=== PATIENT | female | born 1960 | race Caucasian/White ===

== ENCOUNTER 2025-09-11 11:06 | Outpatient (AMB) | payer MEDICARE, SELFPAY ==
[2025-09-11 11:20] VITALS: BMI 24.2
--- NOTE | 2025-09-11 11:20 | A.PHYSOV ---
Vital Signs 09/11/25 11:20 Height 5 ft 6 in Weight 150 lb BMI 24.2 Intake Visit Reasons: eval for back injection Intake Note: Patient is a 65 year old female here today for low back pain. Patient is requesting another injection. 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 She has a history of left hip replacement surgery and has had bursitis on her right side for approximately 20 years. The patient also has a retear of her right meniscus. She distinguishes between the pain from her torn meniscus, which is on the outer corner of her right knee, and the pain from her back, which radiates down the inner aspect of her knee to her two big toes. Her administrative program specialist, Dr. Rebolledo, believes most of her pain is radicular. Previous lumbar injections in December 2023 provided minimal relief. Recently, she has been taking a collagen supplement for about three weeks and has noticed a significant decrease in her pain and improvement in her mobility over the last week. She also had a severe episode of kidney stones around , which caused significant pain, vomiting, and a 15-pound weight loss. Pain Description - Location: The patient reports back pain that radiates down to the inside of her right knee and into her two big toes. - Character: The patient describes a radiating pain and can differentiate it from the pain of her torn meniscus on the outer knee. - Alleviating Factors: The patient reports that taking a collagen supplement for the past three weeks has recently reduced her pain. - Interferes with: At its worst, the pain prevented her from walking upstairs. - Prior treatments: Epidural steroid injections provided only minimal relief. Procedure: Right L3 TFESI 09/09/2023 50% reduction of her pain Right L3, L4 TFESI 01/13/2024 60% reduction of her pain Right hip bursal injection 02/08/2024 [facility] Surgical History (Updated 09/11/25 @ 11:23 by Patricia Pacheco MA) H/O: knee surgery History of hip replacement H/O: hysterectomy History of cancer surgery Social History (Updated 09/11/25 @ 11:22 by Patricia Pacheco MA) Alcohol intake: current Alcohol intake frequency: holidays/special occasions only Patient Tobacco Use Status: Never used Tobacco Use of substances other than those prescribed or required for medical reasons: No Review of Systems Narrative Review of Systems - Musculoskeletal: Reports back pain and right knee pain. - Neurological: Reports pain radiating to the inner right knee and into her two big toes. - Genitourinary: Reports a recent history of kidney stones. - Gastrointestinal: Reports a history of vomiting and nausea associated with her recent kidney stones. - Constitutional: Reports a recent unintentional weight loss of 15 pounds following her illness with kidney stones. - Throat: Reports a tickle in her throat. Physical Exam Exam Exam: Physical Exam Lumbar Spine: Examination of her lumbar spine, there is no visible swelling or deformity. She is tender to the right lower lumbar facets. She has full range of motion of her lumbar spine. Have an increase in pain with facet loading. Special Tests: Lhermittes sign was negative Heel Toe walk is normal Left straight leg raise: Negative Right straight leg raise: Negative Special tests Monica test is positive right Ganslen's test is positive right SI Joint compression positive right Earl test negative Piriformis stretch is negative Lower Extremities: Full range of motion bilateral lower extremities. No calf pain or edema. Neuro: Sensation: Intact to lower extremities bilaterally Strength L2 (Psoas): 5/5 on the left and 5/5 on the right. L3 (Quads): 5/5 on the left and 5/5 on the right. L4 (Ant tibialis): 5/5 on the left and 5/5 on the right. L5 (EHL) 5/5 on the left and 5/5 on the right. S1 (Gastroc): 5/5 on the left and 5/5 on the right. DTR L4: (Patellar) Left 2 Right 2 S1: (Achilles) Left 2 Right 2 Babinski Downgoing No pathologic clonus. No involuntary movement. Vital Signs: BMI result Body Mass Index 24.2 Assessment & Plan Assessment & Plan (1) Vertebrogenic low back pain: Code(s): M54.51 - Vertebrogenic low back pain Category: Medical (2) Sacroiliitis: Code(s): M46.1 - Sacroiliitis, not elsewhere classified Category: Medical Plan Pain Management - Analgesia: The patient reports minimal pain relief from prior lumbar injections. - She has been taking a collagen supplement for three weeks and has noted significant pain improvement in the last week. - Activities of Daily Living: Her activity was previously limited to the point she could not walk upstairs. - She is now more active, walking up and down stairs and going to the store. - Affect: The patient described a past pain episode as awful. Plan Patient was informed and verbally consented to the use of an ambient scribe for clinic note documentation during this visit. 1. Low Back Pain With Right-Sided Radiculopathy The patient's radicular symptoms are not well-explained by her recent lumbar MRI from November 2023, which only showed mild degenerative changes and no obvious nerve compression. Previous lumbar injections were not very effective. Given these findings, sacroiliac joint dysfunction is a possible etiology. A conservative approach will be initiated with a referral for physician primary care sports medicine. If this does not provide relief, the plan is to proceed with a right SI joint injection for diagnostic and therapeutic purposes. Repeat lumbar injections are not recommended at this time. 2. Right Knee Meniscal Tear The patient has a known retear of her right meniscus, which she believes causes pain on the outer aspect of her knee. Her orthopedic surgeon, Dr. Rebolledo, believes the predominant pain source is lumbar radiculopathy and recommended a pain management evaluation first. The plan is for her to follow up with Dr. Domingo Qiu to discuss if surgery would be beneficial for the meniscal tear. Discussion Notes I discussed with the patient her primary complaint of back pain that radiates down her right leg to her knee. We reviewed that prior lumbar injections provided minimal relief and that her recent lumbar MRI from November 2023 did not show a clear cause for her symptoms, revealing only mild degenerative changes without nerve compression. I explained that given the presentation and diagnostic findings, her pain may be originating from her sacroiliac (SI) joint rather than her lumbar spine. We discussed a plan to start with conservative treatment. I provided a referral for physician primary care sports medicine and recommended she try this for approximately one month. We agreed that if this treatment is not effective, we would then consider a right SI joint injection. I informed her that repeating her lumbar injections is not reasonable at this time. Patient Instructions - I have given you an order for physician primary care sports medicine. - Please find a provider in your community and try this treatment for about a month to see if it helps your back and leg pain. - If the chiropractic treatment does not work, we can then try an injection in your right sacroiliac (SI) joint. - We will not be doing another injection in your low back at this time because it did not provide much relief before and your MRI does not show a significant problem there. - You should also follow up with Dr. Domingo Qiu to discuss your right knee meniscus tear. Orders: Referrals Chiropractic Referral M46.1 - Sacroiliitis, not elsewhere classified, M54.51 - Vertebrogenic low back pain Coding Level of Care Code Tele Est Pt Level 3 (46874) Diagnoses Vertebrogenic low back pain M54.51 Sacroiliitis M46.1
== END 2025-09-11 12:22 | disposition home or self-care (01) ==
LOC: HO.HPHYS 11:07
PROVIDERS: PCP Internal Medicine; Visit Provider Physician Assistant
DX: M54.51 Vertebrogenic low back pain (principal); M46.1 Sacroiliitis, not elsewhere classified
CPT/HCPCS: 99213

== ENCOUNTER → 2025-09-11 11:06 | Outpatient (BNVA) | payer MEDICARE, SELFPAY | PROVIDERS: PCP Internal Medicine; Visit Provider Physician Assistant | DX: M54.51 Vertebrogenic low back pain (principal); M46.1 Sacroiliitis, not elsewhere classified | CPT/HCPCS: 99212 ==